=== PATIENT | female | born 1990 | race Caucasian/White ===

== ENCOUNTER 2018-11-16 15:37 | Emergency (ER) | payer OTHER ==
[~2018-11-16] VITALS: Ht 149.9 cm; Wt 57.2 kg
[2018-11-16 16:34] LABS: BASO % 0.5 % (0.0-1.0); EOS # 0.1 10^3/uL (0.0-0.50); HEMATOCRIT 41.2 % (36.0-47.0); LYMPH # 2.5 10^3/uL (1.5-4.5); LYMPH % 40.4 % (24.0-44.0); MEAN CORPUSCULAR HEMOGLOBIN 29.9 pg (27.0-33.0); MEAN CORPUSCULAR VOLUME 87.8 fl (80.0-96.0); MONO # 0.4 10^3/uL (0.0-0.8); MONO % 6.4 % (0.0-5.0); NEUTROPHILS # 3.3 10^3/uL (1.8-7.7); NEUTROPHILS % 51.5 % (36.0-66.0); PLATELET COUNT, AUTOMATED 282 10^3/uL (150-450); RED BLOOD COUNT 4.69 10^6/uL (4.00-5.40); WHITE BLOOD COUNT 6.3 10^3/uL (4.0-10.0)
[2018-11-16 17:01] LABS: BLOOD UREA NITROGEN 11 MG/DL (7-18); CALCIUM LEVEL 8.5 MG/DL (8.5-10.1); CARBON DIOXIDE LEVEL 27 MEQ/L (21-32); CHLORIDE LEVEL 108 MEQ/L (98-107); CREATININE FOR GFR 0.66 MG/DL (0.55-1.30); GLOMERULAR FILTRATION RATE > 60.0 (>60); GLUCOSE, FASTING 83 MG/DL (70-100); HCG, SERUM QUANTITATIVE 277 MIU/ML; POTASSIUM SERUM 4.1 MEQ/L (3.5-5.1); SODIUM LEVEL 139 MEQ/L (136-145)
[2018-11-16] MEDS ORDERED: KEFL500C17 PO (17:34)
[2018-11-16 17:46] VITALS: BP 105/61
--- NOTE | 2018-11-17 08:55 | REP ---
PELVIC ULTRASOUND: Real-time sonographic evaluation of the pelvis performed utilizing transabdominal and endovaginal technique. The uterus measures 7.1 x 3.4 x 4.0 cm. Endometrial echo complex measures 6 mm. There is no intrauterine gestational sac or fluid collection. Right ovary measures 3.0 x 1.7 x 1.9 cm and there is a right paraovarian cyst 2.5 x 2.4 x 1.3 cm. Left ovary measures 2.1 x 1.9 x 2.0 cm. There is no torsion bilaterally, blood flow is seen in each ovary with duplex Doppler evaluation. There is no other evidence of adnexal mass. There is trace free fluid. If the patient is then differential diagnosis would include very early intrauterine , missed AB, or ectopic . Correlate with serial quantitive beta hCG values. Electronically Signed by Meño Doty MD 11/17/2018 04:20 P
== END 2018-11-16 17:47 | disposition home or self-care (01) ==
LOC: M ED 15:37
DX: O23.41 Unspecified infection of urinary tract in pregnancy, first trimester (principal); Z3A.00 Weeks of gestation of pregnancy not specified

== ENCOUNTER → 2018-11-18 | Outpatient (CLI) | payer OTHER ==
[~2018-11-18] MED LIST: KEFL500C17 PO
== END ==
LOC: M LAB 14:55
PROVIDERS: ATTEND Physician Assistant
DX: O20.0 Threatened abortion (principal); Z3A.00 Weeks of gestation of pregnancy not specified